=== PATIENT | male | born 1985 | race Caucasian/White ===

== ENCOUNTER 2022-08-01 19:31 | Emergency (ER) | payer OTHER ==
--- NOTE | 2022-08-01 19:38 | ED Physician Documentation ---
PD HPI UPPER EXT INJURY - Stated complaint Stated Complaint: LT HAND INJ - History obtained from History obtained from: Patient - History of Present Illness Associated symptoms: No: Weakness, Numbness Contributing factors: No: Anticoagulated - Additonal information Additional information: HPI from patient. Patient is left-hand dominant. Approximately 20 minutes prior to arrival to the emergency department, patient was taking a new knife out of its packaging at home when he accidentally sustained a laceration from this knife to the first webspace of his left hand.He denies numbness, denies weakness. He is not sure when his last tetanus shot was.However, he says he has not intentionally missed any immunizations and believes he is up-to-date on all immunizations as per national and medical guidelines and recommendations. Review of Systems Skin: reports: Laceration (s) PD PAST MEDICAL HISTORY - Past Medical History Past Medical History: No - Present Medications Home Medications: Ambulatory Orders Medication Instructions Recorded Confirmed No Known Home Medications 08/01/22 08/01/22 - Allergies Allergies/Adverse Reactions: Allergies Allergy/AdvReac Type Severity Reaction Status Date / Time No Known Drug Allergies Allergy Verified 08/01/22 19:45 PD ED PE NORMAL - Vitals Vital signs reviewed: Yes - General General: Alert and oriented X 3, No acute distress, Well developed/nourished - Derm Derm: Normal color, Warm and dry - Neuro Neuro: No motor deficit (FROM and strength left thumb and left pointer finger, including flexion and extension and with isolation of MCP, IP joints (thumb) and MCP, PIP, DIP joints of pointer finger. Other fingers note tested as they are not within distribution of neurovascular supply relative to the laceration) PD ED PE EXPANDED - Extremities TRACIE UE/Hands Visual: 1 - laceration (1 cm length laceration with exposed underlying (adipose) soft tissue) Results - Vitals Vitals: Oxygen O2 Source Room air Procedures - Laceration (location) Hand left Length in cm: 1 Wound type: Linear, Into subcut fat, Clean Neurovascular status: Sensory intact, Motor intact, Vascular intact Tendon involvement: Tendon intact Anesthesia: Lidocaine 1% Wound preparation: Chlorhexadine, Irrigated copiously NS, Wound explored Skin layer closure: Nylon, Running, Size #-0 - enter number (5-0) Other: Patient tolerated well, No complications, Neurovascular intact, Dressing applied, Tetanus UTD PD Medical Decision Making - ED course Complexity details: considered differential, d/w patient ED course: laceration to first webspace of left hand (patient is left hand dominant as well), repaired as per procedure note above. Return precautions discussed, follow up with PMD for suture removal Departure - Departure Disposition: 01 Home, Self Care Clinical Impression: Laceration Condition: Good Instructions: ED Laceration Hand Follow-Up: AMBERLY Cummings [Provider Group] Comments: Follow-up with your primary care provider in 7 to 10 days for suture/stitch removal. You should call tomorrow morning when the office is open to arrange for the appointment in that timeframe. As we discussed, ideally, you should also arrange for a reevaluation of the wound early in the week for purposes of both wound recheck as well as reevaluation of returning to full duty. Forms: Activity restrictions Discharge Date/Time: 08/01/22 20:33
[2022-08-01] MEDS ORDERED: LIDOCAINE 1% 2 ML VIAL SUBQ STA (19:47)
[2022-08-01 19:55] VITALS: BP 140/87
[2022-08-01] MEDS ORDERED: BACITRACIN ZINC OINT 1 PACKET TOP STA (20:25)
== END 2022-08-01 20:33 | disposition home or self-care (01) ==
LOC: ED 19:31
DX: S61.218A Laceration without foreign body of other finger without damage to nail, initial encounter (principal); W26.0XXA Contact with knife, initial encounter
CPT/HCPCS: 12001; 99282; A9270